=== PATIENT | male | born 1990 | race Caucasian/White ===

== ENCOUNTER 2020-12-30 11:08 | Day surgery (SDC) | payer MEDICAID ==
[2020-12-27 15:11] LABS: COVID AG,FIA SOURCE NASOPHARYNGEAL
[~2020-12-30] VITALS: Ht 170.2 cm; Wt 80.0 kg
[~2020-12-30 11:08] MED LIST: SODIUM CHLORIDE 0.9% 1,000 ML IV ONE; SODIUM CHLORIDE 0.9% 1,000 ML ONE
[2020-12-30] MEDS ORDERED: PROPOFOL 1% 20 ML VIAL IVP ONE (11:09)
[2020-12-30] MEDS ORDERED: LIDOCAINE/PF 2% 5 ML VIAL IM ONE (11:09)
== END 2020-12-30 14:35 | disposition home or self-care (01) ==
LOC: SURGERY 11:08
PROVIDERS: ATTEND Internal Medicine Gastroenterology
DX: K62.5 Hemorrhage of anus and rectum (principal); K64.9 Unspecified hemorrhoids; G40.909 Epilepsy, unspecified, not intractable, without status epilepticus; G47.33 Obstructive sleep apnea (adult) (pediatric); Z98.890 Other specified postprocedural states; Z79.899 Other long term (current) drug therapy
CPT/HCPCS: 45378; 87426; C9803; J2704; J3490; J7030